=== PATIENT | female | born 1985 | race Caucasian/White ===

== ENCOUNTER 2016-03-21 12:37 | Emergency (ER) | payer MEDICAID, OTHER ==
[~2016-03-21] VITALS: Ht 154.9 cm; Wt 59.0 kg
[~2016-03-21 12:37] MED LIST: DOCU100S PO; FLON0.053; HYDR-3533 PO; PROM25TA5 PO; Z.0.BCPILL PO; [UNRECOGNIZED DRUG - OTHER] PO
[2016-03-21 12:41] VITALS: BP 120/72; PULSE 78; RESP 15; TEMP 98.4; O2SAT 98
--- NOTE | 2016-03-21 15:17 | PD ---
HPI Chief Complaint: Chest Pain Time Seen by Provider: 14:47 Travel History International Travel<30 days: No Contact w/Intl Traveler<30days: No Traveled to known affect area: No History of Present Illness HPI The patient was seen and examined in the presence of the nurse. This patient complains of primarily sore throat. She had attempted orally of 101 this morning. She also complains of some left sided pleuritic chest pain. She recently got over a cough. She is not short of breath. She can reproduce her chest pain with deep breath and torso movement. No alleviating factors. Symptoms severity is moderate. Duration 3 days. PFSH Past Medical History Asthma: Yes ( CHILD) Diminished Hearing: No Gastrointestinal Disorders: Yes ( A CHILD HAD A PEPTIC ULCER) Immunizations Current: Yes ?: Not LMP: 03/12/16 Past Surgical History Section: Yes Social History Alcohol Use: No Tobacco Use: No Substance Use: No Allergies-Medications (Allergen,Severity, Reaction): Coded Allergies: Peanut (Verified Allergy, Intermediate, hives with ingestion, minor throat swelling, 03/21/16) Reported Meds & Prescriptions Reported Meds & Active Scripts Active No Active Prescriptions or Reported Medications Review of Systems General / Constitutional: Positive: Fever Eyes: No: Visual changes HENT: Positive: Sore Throat, No: Headaches Cardiovascular: Positive: Chest Pain or Discomfort Respiratory: Positive: Cough, No: Shortness of Breath Gastrointestinal: No: Abdominal Pain Genitourinary: No: Dysuria Musculoskeletal: No: Pain Skin: No Rash Neurologic: No: Weakness Psychiatric: No: Depression Endocrine: No: Polydipsia Hematologic/Lymphatic: No: Easy Bruising Physical Exam Narrative GENERAL: Well-nourished, well-developed patient in no apparent distress. SKIN: Warm and dry. HEAD: Atraumatic. Normocephalic. EYES: Pupils equal and round. No scleral icterus. No injection or drainage. ENT: No nasal bleeding or discharge. Mucous membranes pink and moist. Patient has posterior pharynx erythema and a lot of white exudate on her right tonsil. Uvula is midline NECK: Trachea midline. No JVD. No meningeal signs CARDIOVASCULAR: Regular rate and rhythm. No murmur appreciated. RESPIRATORY: No accessory muscle use. Clear to auscultation. Breath sounds equal bilaterally. GASTROINTESTINAL: Abdomen soft, non-tender, nondistended. Hepatic and splenic margins not palpable. MUSCULOSKELETAL: No obvious deformities. No clubbing. No cyanosis. No edema. No chest wall tenderness NEUROLOGICAL: Awake and alert. No obvious cranial nerve deficits. Motor grossly within normal limits. Normal speech. PSYCHIATRIC: Appropriate mood and affect; insight and judgment normal. Data Data Last Documented VS Vital Signs Date Time Temp Pulse Resp B/P Pulse Ox O2 Delivery O2 Flow Rate FiO2 03/21/16 14:41 Room Air 03/21/16 12:41 98.4 78 15 120/72 98 Orders Electrocardiogram (03/21/16 12:56) Chest, Single Ap (03/21/16 ) [facility] Medical Decision Making Medical Screen Exam Complete: Yes Emergency Medical Condition: Yes Medical Record Reviewed: Yes Differential Diagnosis Tonsillitis, pleurisy, pneumonia, bronchitis Narrative Course I have reviewed the patient's electronic medical record. I reviewed her EKG which looks normal i Reviewed her chest x-ray which is normal Patient has an obvious tonsillitis on clinical exam. I don't feel culturing would filter changer. Prescribe penicillin for a week Her chest pain is clearly noncardiac and will not require inpatient evaluation Diagnosis Primary Impression: Tonsillitis with exudate Additional Impression: Non-cardiac chest pain Additional Instructions: The patient was advised to follow up with their physician and return if they worsen. Med/Other Pt SpecificInfo: Prescription(s) given Scripts Penicillin V Potassium 500 Mg [id number] Mg PO Q6H #28 TAB Ref 0 Prov:Jim Miranda MD 03/21/16 Disposition: 01 DISCHARGE HOME Condition: Stable Jim Miranda MD Mar 21, 2016 15:17
--- NOTE | 2016-03-21 15:54 | RADRPT ---
EXAM DATE/TIME: 03/21/2016 15:26 [facility] COMPARISON: No previous studies available for comparison. INDICATIONS : Chest pains. MEDICAL HISTORY : None. SURGICAL HISTORY : None. ENCOUNTER: Initial ACUITY: 1 day PAIN SCORE: 7/10 LOCATION: Bilateral chest FINDINGS: A single view of the chest demonstrates the lungs to be symmetrically aerated without evidence of mas s, infiltrate or effusion. The cardiomediastinal contours are unremarkable. Osseous structures are intact with a mild dextroscoliosis of the thoracolumbar spine. CONCLUSION: No acute cardiopulmonary process Kenny Noriega MD on March 21, 2016 at 15:52 Board Certified Radiologist. This report was verified electronically.
[2016-03-21] MEDS ORDERED: PENI500T PO (16:04)
[2016-03-21 16:07] VITALS: BP 118/65; PULSE 72; RESP 18; O2SAT 98
[2016-03-21 16:30] VITALS: BP 107/70
--- NOTE | 2016-03-22 22:58 | EKG ---
Date Performed: 03/21/2016 Time Performed: 13:23:41 PTAGE: 31 years EKG: Sinus rhythm BORDERLINE RIGHT AXIS DEVIATION BORDERLINE ECG NO PREVIOUS TRACING DOCTOR: Adriano Adams Interpretating Date/Time 03/22/2016 22:50:30
== END 2016-03-21 16:46 | disposition home or self-care (01) ==
LOC: NEPA 12:37
DX: J03.90 Acute tonsillitis, unspecified (principal); R07.1 Chest pain on breathing
CPT/HCPCS: 71010; 93005

== ENCOUNTER 2016-08-03 16:35 | Observation (INO) | payer MEDICAID ==
[2016-08-03] VITALS (7 sets, daily range): BP systolic 74–121; BP diastolic 37–72; PULSE 62–80; RESP 12–24; TEMP 97.9; O2SAT 98–100
[~2016-08-03] VITALS: Ht 154.9 cm; Wt 54.0 kg
[~2016-08-03 16:35] MED LIST changes: -DOCU100S PO; -FLON0.053; -HYDR-3533 PO; +PENI500T PO; -PROM25TA5 PO; -Z.0.BCPILL PO; -[UNRECOGNIZED DRUG - OTHER] PO
--- NOTE | 2016-08-03 16:48 | PD ---
Physical Exam Date Seen by Provider: Aug 03, 2016 Time Seen by Provider: 16:46 Data Data Last Documented VS Vital Signs Date Time Temp Pulse Resp B/P Pulse Ox O2 Delivery O2 Flow Rate FiO2 08/03/16 16:38 76 24 121/63 100 Room Air MDM Supervised Visit with JAZMINE: No Narrative Course 31 YO F with complaint of ~24 hour history of vaginal bleeding, abdominal pain. Denies risk of . History of 2 months ago. Vitals reviewed. Awaiting bed placement. Nani Antonio Aug 03, 2016 16:48
--- NOTE | 2016-08-03 16:53 | PD ---
HPI Chief Complaint: Residence Manager Problem/Complaint Time Seen by Provider: 16:53 Travel History International Travel<30 days: No Contact w/Intl Traveler<30days: No Traveled to known affect area: No History of Present Illness HPI 31 year old female presents to the ED for evaluation of vaginal bleeding and lower abdominal cramping. Pt states two months ago she had an via oral medication in [place] and had heavy bleeding and cramping following this for 1- 2 days. She had a follow up ultrasound two weeks following and was informed "everything passed" but there were " a few little clots that were still needing to pass." Pt reports post bleeding stopped and on July 22, pt had her first menstrual cycle since the . It was "normal" for her. Pt states it ended around July 27. Yesterday, the pt reports light bleeding and cramping. She states that then turned prone and she felt like it was resolving. She states today she was playing with her daughters when she began to experience heavy vaginal bleeding, passing large clots, and significant abdominal cramping. Denies any fever or chills. No nausea or vomiting. No vaginal discharge other than the bleeding. No trauma. No other symptoms to report. Patient does not have a local CARDIOTHORACIC SURGEON. [facility] Past Medical History Asthma: Yes ( CHILD) Diminished Hearing: No Gastrointestinal Disorders: Yes ( A CHILD HAD A PEPTIC ULCER) Immunizations Current: Yes ?: Not Past Surgical History Section: Yes Social History Alcohol Use: No Tobacco Use: No Substance Use: No Allergies-Medications (Allergen,Severity, Reaction): Coded Allergies: Peanut (Verified Allergy, Intermediate, hives with ingestion, minor throat swelling, 08/03/16) Reported Meds & Prescriptions Reported Meds & Active Scripts Active No Active Prescriptions or Reported Medications Review of Systems Except as stated in HPI: all other systems reviewed are Neg Physical Exam Narrative GENERAL: Well-nourished female patient, ambulatory and in no acute distress SKIN: Focused skin assessment warm/dry. HEAD: Atraumatic. Normocephalic. EYES: Pupils equal and round. No scleral icterus. No injection or drainage. ENT: No nasal bleeding or discharge. Mucous membranes pink and moist. NECK: Trachea midline. No JVD. CARDIOVASCULAR: Regular rate and rhythm. No murmur appreciated. RESPIRATORY: No accessory muscle use. Clear to auscultation. Breath sounds equal bilaterally. GASTROINTESTINAL: Abdomen soft, nondistended. Suprapubic tenderness to palpation. No guarding. Hepatic and splenic margins not palpable. GENITOURINARY: Normal external genitalia without lesions or erythema. Exam is significantly limited due to heavy lola red vaginal bleeding with large clots being passed. MUSCULOSKELETAL: No obvious deformities. No clubbing. No cyanosis. No edema. NEUROLOGICAL: Awake and alert. No obvious cranial nerve deficits. Motor grossly within normal limits. Normal speech. PSYCHIATRIC: Appropriate mood and affect; insight and judgment normal. Data Data Last Documented VS Vital Signs Date Time Temp Pulse Resp B/P Pulse Ox O2 Delivery O2 Flow Rate FiO2 08/03/16 21:15 80 21 96/72 100 Nasal Cannula 2 Orders Beta Hcg (Quant/Titer) (08/03/16 17:05) Complete Blood Count With Diff (08/03/16 17:05) Basic Metabolic Panel (Bmp) (08/03/16 17:05) Gc And Chlamydia Pcr (08/03/16 17:05) Type And Screen (08/03/16 17:05) Urinalysis - C+S If Indicated (08/03/16 17:05) Iv Access Insert/Monitor (08/03/16 17:05) Ed Urine Pregnancytest Poc (08/03/16 17:05) Sodium Chlor 0.9% 1000 Ml Inj (Ns 1000 M (08/03/16 17:15) Us Pelvis Comp W Transvaginal (08/03/16 ) Ketorolac Inj (Toradol Inj) (08/03/16 17:30) Hgb & Hct (08/03/16 19:19) Morphine Inj (Morphine Inj) (08/03/16 20:15) Sodium Chlor 0.9% 1000 Ml Inj (Ns 1000 M (08/03/16 20:30) Methylergonovine Inj (Methergine Inj) (08/03/16 20:30) Red Blood Cells (Rbc) (08/03/16 20:31) Blood Product Administration .UPON TRANSFUSION (08/03/16 20:31) Sodium Chlor 0.9% 250 Ml Inj (Ns 250 Ml (08/03/16 20:45) Misoprostol (Cytotec) (08/03/16 20:45) Methylergonovine Inj (Methergine Inj) (08/03/16 20:50) Admit Order (Ed Use Only) (08/03/16 21:29) Labs Laboratory Tests Test 08/03/16 08/03/16 08/03/16 08/03/16 17:10 20:16 20:34 21:10 White Blood Count 8.4 TH/MM3 Red Blood Count 4.65 MIL/MM3 Hemoglobin 13.3 GM/DL 11.7 GM/DL Hematocrit 40.2 % 34.6 % Mean Corpuscular Volume 86.4 FL Mean Corpuscular Hemoglobin 28.6 PG Mean Corpuscular Hemoglobin 33.0 % Concent Red Cell Distribution Width 13.2 % Platelet Count 241 TH/MM3 Mean Platelet Volume 10.1 FL Neutrophils (%) (Auto) 65.5 % Lymphocytes (%) (Auto) 28.6 % Monocytes (%) (Auto) 3.8 % Eosinophils (%) (Auto) 1.1 % Basophils (%) (Auto) 1.0 % Neutrophils # (Auto) 5.5 TH/MM3 Lymphocytes # (Auto) 2.4 TH/MM3 Monocytes # (Auto) 0.3 TH/MM3 Eosinophils # (Auto) 0.1 TH/MM3 Basophils # (Auto) 0.1 TH/MM3 CBC Comment DIFF FINAL Differential Comment Urine Color YELLOW Urine Turbidity SLIGHT Urine pH 7.5 Urine Specific [place] 1.022 Urine Protein TRACE mg/dL Urine Glucose (UA) NEG mg/dL Urine Ketones NEG mg/dL Urine Occult Blood MOD Urine Nitrite NEG Urine Bilirubin NEG Urine Urobilinogen LESS THAN 2.0 MG/DL Urine Leukocyte Esterase NEG Urine RBC /hpf Urine WBC 5 /hpf Urine Squamous Epithelial 1 /hpf Cells Urine Mucus FEW /lpf Microscopic Urinalysis Comment CULT NOT INDICATED Sodium Level 139 MEQ/L Potassium Level 4.0 MEQ/L Chloride Level 104 MEQ/L Carbon Dioxide Level 25.8 MEQ/L Anion Gap 9 MEQ/L Blood Urea Nitrogen 14 MG/DL Creatinine 0.83 MG/DL Estimat Glomerular Filtration 81 ML/MIN Rate Random Glucose 94 MG/DL Calcium Level 9.0 MG/DL Human Chorionic Gonadotropin, 24 MIU/ML Quant Blood Type O POSITIVE O POSITIVE Antibody Screen NEGATIVE Blood Bank Comment Crossmatch Leukocyte-Reduced Red Blood Cells MDM Medical Decision Making Medical Screen Exam Complete: Yes Emergency Medical Condition: Yes Medical Record Reviewed: Yes Differential Diagnosis Postabortion hemorrhage versus menorrhagia versus vaginal bleeding versus miscarriage versus menses Narrative Course 31-year-old female presents to emergency department for evaluation of vaginal bleeding. Patient initially appears well. Vital signs are stable. Hemoglobin is 13.3 BMP is without acute concern. Beta hCG is 24. Urinalysis is with moderate local blood and innumerable RBC. Culture is not indicated patient does have a significant amount of vaginal bleeding. Ultrasound is ordered for further evaluation of this. Laboratory Tests Test 08/03/16 08/03/16 08/03/16 08/03/16 17:10 20:16 20:34 21:10 White Blood Count 8.4 TH/MM3 Red Blood Count 4.65 MIL/MM3 Mean Corpuscular Volume 86.4 FL Mean Corpuscular Hemoglobin 28.6 PG Mean Corpuscular Hemoglobin 33.0 % Concent Red Cell Distribution Width 13.2 % Platelet Count 241 TH/MM3 Mean Platelet Volume 10.1 FL Neutrophils (%) (Auto) 65.5 % Lymphocytes (%) (Auto) 28.6 % Monocytes (%) (Auto) 3.8 % Eosinophils (%) (Auto) 1.1 % Basophils (%) (Auto) 1.0 % Neutrophils # (Auto) 5.5 TH/MM3 Lymphocytes # (Auto) 2.4 TH/MM3 Monocytes # (Auto) 0.3 TH/MM3 Eosinophils # (Auto) 0.1 TH/MM3 Basophils # (Auto) 0.1 TH/MM3 CBC Comment DIFF FINAL Differential Comment Urine Color YELLOW Urine Turbidity SLIGHT Urine pH 7.5 Urine Specific [place] 1.022 Urine Protein TRACE mg/dL Urine Glucose (UA) NEG mg/dL Urine Ketones NEG mg/dL Urine Occult Blood MOD Urine Nitrite NEG Urine Bilirubin NEG Urine Urobilinogen LESS THAN 2.0 MG/DL Urine Leukocyte Esterase NEG Urine RBC /hpf Urine WBC 5 /hpf Urine Squamous Epithelial 1 /hpf Cells Urine Mucus FEW /lpf Microscopic Urinalysis Comment CULT NOT INDICATED Sodium Level 139 MEQ/L Potassium Level 4.0 MEQ/L Chloride Level 104 MEQ/L Carbon Dioxide Level 25.8 MEQ/L Anion Gap 9 MEQ/L Blood Urea Nitrogen 14 MG/DL Creatinine 0.83 MG/DL Estimat Glomerular Filtration 81 ML/MIN Rate Random Glucose 94 MG/DL Calcium Level 9.0 MG/DL Human Chorionic Gonadotropin, 24 MIU/ML Quant Antibody Screen NEGATIVE Hemoglobin 11.7 GM/DL Hematocrit 34.6 % Crossmatch Leukocyte-Reduced Red Blood Cells Blood Bank Comment Blood Type O POSITIVE 1914 repeat H&H is ordered due to patient's continued bleeding. Patient is still awaiting ultrasound to be completed. She is treated for pain. 2029 patient begins to feel lightheaded. She appears pallor. She continues to have heavy vaginal bleeding. She is now hypotensive. Normal saline boluses hung. 2 units of packed red blood cells are ordered. I have placed a call to the [facility]GE[facility] hospitalist. I spoke with Dr. Orona who recommends 0.2mg Methergine IM. She'll be down to evaluate the patient. 2049 Dr. Orantes is at bedside. Patient is being examined. Multiple clots have been removed from the vaginal vault. Please refer to Dr. Orona's documentation. 2129 ultrasound results a large hypervascular mass in the central uterus measuring 4.6 cm. It is uncertain whether this arises from the myometrium or the endometrium. There is complex partially cystic lesion in the left ovary measuring 2.4 cm with peripheral flow on color Doppler. Passage of a significant amount of clot from the vagina during transabdominal exam is noted. Dr. Orona is aware. Pt will be admitted observation to her service. Diagnosis Primary Impression: Vaginal bleeding, abnormal Additional Impression: History of elective Admitting Information Admitting Physician Requests: Observation (h) Scripts No Active Prescriptions or Reported Meds Condition: Stable BarNallely pizano GILDA Aug 03, 2016 16:53
[2016-08-03] MEDS ORDERED: SODIUM CHLOR 0.9% 1000 ML INJ 1,000 ML IV ONE ×2 (17:15→20:30)
[2016-08-03] MEDS ORDERED: KETOROLAC TROMETHAMINE 30 MG/ML (IVP) VIAL IV PUSH ONE (17:30)
[2016-08-03 17:36] LABS: AUTOMATED NEUTROPHIL # 5.5 TH/MM3 (1.8-7.7); BASOPHIL # 0.1 TH/MM3 (0-0.2); EOSINOPHIL # 0.1 TH/MM3 (0-0.4); EOSINOPHIL % 1.1 % (0.0-4.0); HEMATOCRIT 40.2 % (35.0-46.0); HEMO FLAGS DIFF FINAL; LYMPH % 28.6 % (9.0-44.0); LYMPHOCYTE # 2.4 TH/MM3 (1.0-4.8); MEAN CELL VOLUME 86.4 FL (80.0-100.0); MEAN CORPUSCULAR HEMOGLOBIN 28.6 PG (27.0-34.0); MONO % 3.8 % (0.0-8.0); NEUT % 65.5 % (16.0-70.0); PLATELET COUNT 241 TH/MM3 (150-450); RED BLOOD COUNT 4.65 MIL/MM3 (4.00-5.30); RED CELL DISTRIBUTION WIDTH 13.2 % (11.6-17.2); WHITE BLOOD COUNT 8.4 TH/MM3 (4.0-11.0)
[2016-08-03 17:46] LABS: BLOOD, URINE MOD (NEG); GLUCOSE,URINE NEG (NEG); KETONE, URINE NEG (NEG); MUCUS URINE FEW /lpf (OCC); NITRITE,URINE NEG (NEG); PH, URINE 7.5 (5.0-8.5); SQUAMOUS EPITHELIAL CELL URINE 1 /hpf (0-5); URINE COLOR YELLOW (YELLW/STRAW)
[2016-08-03 17:47] LABS: COMMENT (UR) CULT NOT INDICATED; CULTURE IF INDICATED CULT NOT INDICATED
[2016-08-03 18:14] LABS: BICARBONATE 25.8 MEQ/L (21.0-32.0)
[2016-08-03] MEDS ORDERED: MORPHINE SULFATE 4 MG/ML INJ IV PUSH ONE (20:15)
[2016-08-03] MEDS ORDERED: METHYLERGONOVINE MALEATE 0.2 MG/ML VIAL IM ONE (20:30)
[2016-08-03 20:39] LABS: HEMATOCRIT 34.6 % (35.0-46.0); REVIEW FLAG FINAL
[2016-08-03] MEDS ORDERED: METHYLERGONOVINE MALEATE 0.2 MG/ML VIAL IM STA ×2 (20:39→20:50)
[2016-08-03] MEDS ORDERED: MISOPROSTOL 200 MCG TAB RECTAL ONE (20:45)
[2016-08-03] MEDS ORDERED: SODIUM CHLOR 0.9% 250 ML INJ 250 ML IV ONE (20:45)
--- NOTE | 2016-08-03 21:38 | PD.CONS ---
HPI Chief Complaint Vaginal bleeding Date Seen: Aug 03, 2016 Travel History International Travel<30 Days: No Contact w/Intl Traveler<30Days: No Known Affected Area: No History of Present Illness HPI 31 yo who had a recent EAB at 7 weeks gestation in [place]. She was given an oral "tablet" that followed with vaginal bleeding and clots. She had a f/u US 2 weeks later that noted no IUP, just "some clots" per patient. Records not available. She had about 2-3 weeks of light vaginal bleeding and at 4-5 weeks post AB she had heavier bleeding that she thought might be a period. Yesterday she began to have significant vaginal bleeding with clot that seem to resolve after a few hours. She then started having significant cramping and vaginal bleeding today before presenting to the ER. On presentation to the ER she had heavy vaginal bleeding, but VSS, she was afebrile. Her Hgb was 11. An ultrasound was obtained, and is still pending. She was given IVF and 2 units of blood were crossed. She continued to pass several clots and became hypotensive which resolved with fluids. Estimated blood loss was about 1000ml. EMBROIDERER [facility] was called for consult. She was given an initial IM injection of Methergine. A clot was removed from the vaginal vault and the cervix was closed. A second dose of IM Methergine was given and on repeat speculum exam her bleeding had resolved. A cervical polyp was also observed at the cervical OS which is hemostatic. History Obstetric History Obstetric History x 1 x 1 EAB x 1 Past Surgical History Narrative Surgical 2016 Family History Family History: Negative Social History Alcohol Use: No Tobacco Use: No Substance Abuse: No Allergies-Medications (Allergen,Severity, Reaction): Coded Allergies: Peanut (Verified Allergy, Intermediate, hives with ingestion, minor throat swelling, 08/03/16) Home Meds Discontinued Scripts Penicillin V Potassium 500 Mg [id number] Mg PO Q6H #28 TAB Ref 0 Prov:Jim Miranda MD 03/21/16 Review of Systems General / Constitutional: No: Fever, Chills HENT: No: Headaches, Lightheadedness Cardiovascular: No: Chest Pain or Discomfort, Palpitations Respiratory: No: Cough, Short of Breath Gastrointestinal: Nausea, Abdominal Pain (cramping), No: Vomiting, Diarrhea Genitourinary: Pelvic Pain (pressure), Vaginal Bleeding, No: Urgency, Frequency, Dysuria, Discharge Musculoskeletal: No: Limited ROM, Weakness, Edema Skin: No Rash, No Itching, No Lesions Neurologic: No: Syncope, Focal Abnormalities Physical Exam Vital Signs Date Time Temp Pulse Resp B/P Pulse Ox O2 Delivery O2 Flow Rate FiO2 08/03/16 21:10 80 22 89/55 100 Nasal Cannula 2 08/03/16 21:00 69 22 87/52 100 Nasal Cannula 2 08/03/16 20:25 62 12 74/37 100 Nasal Cannula 2 08/03/16 20:19 72 12 106/59 98 Room Air 08/03/16 18:32 17 08/03/16 17:03 17 08/03/16 16:38 76 24 121/63 100 Room Air Narrative GENERAL: Well-nourished, well-developed patient. SKIN: Warm and dry. HEAD: Normocephalic and atraumatic. EYES: No scleral icterus. No injection or drainage. ENT: No nasal drainage noted. Mucous membranes pink. Airway patent. NECK: trachea midline. No JVD. CARDIOVASCULAR: Regular rate and rhythm without murmurs, gallops, or rubs. RESPIRATORY: Breath sounds equal bilaterally. No accessory muscle use. ABDOMEN/GI: Abdomen soft, non-tender, no rebound, no guarding GENITOURINARY: External Genitalia: intact and normal in appearance BUS glands: [-] SSE: Cervix: external polyp noted 1cm hemostatic Bimanual exam: clots in vaginal vault cleared, cervix was closed EXTREMITIES: No cyanosis or edema. BACK: Nontender without obvious deformity. No CVA tenderness. NEUROLOGICAL: Awake and alert. Motor and sensory grossly within normal limits. Normal speech. Data Data Vital Signs Reviewed: Yes Orders Beta Hcg (Quant/Titer) (08/03/16 17:05) Complete Blood Count With Diff (08/03/16 17:05) Basic Metabolic Panel (Bmp) (08/03/16 17:05) Gc And Chlamydia Pcr (08/03/16 17:05) Type And Screen (08/03/16 17:05) Urinalysis - C+S If Indicated (08/03/16 17:05) Iv Access Insert/Monitor (08/03/16 17:05) Ed Urine Pregnancytest Poc (08/03/16 17:05) Sodium Chlor 0.9% 1000 Ml Inj (Ns 1000 M (08/03/16 17:15) Us Pelvis Comp W Transvaginal (08/03/16 ) Ketorolac Inj (Toradol Inj) (08/03/16 17:30) Hgb & Hct (08/03/16 19:19) Morphine Inj (Morphine Inj) (08/03/16 20:15) Sodium Chlor 0.9% 1000 Ml Inj (Ns 1000 M (08/03/16 20:30) Methylergonovine Inj (Methergine Inj) (08/03/16 20:30) Red Blood Cells (Rbc) (08/03/16 20:31) Blood Product Administration .UPON TRANSFUSION (08/03/16 20:31) Sodium Chlor 0.9% 250 Ml Inj (Ns 250 Ml (08/03/16 20:45) Misoprostol (Cytotec) (08/03/16 20:45) Methylergonovine Inj (Methergine Inj) (08/03/16 20:50) Labs Laboratory Tests Test 08/03/16 08/03/16 08/03/16 17:10 20:16 20:34 White Blood Count 8.4 Red Blood Count 4.65 Hemoglobin 13.3 11.7 Hematocrit 40.2 34.6 Mean Corpuscular Volume 86.4 Mean Corpuscular Hemoglobin 28.6 Mean Corpuscular Hemoglobin 33.0 Concent Red Cell Distribution Width 13.2 Platelet Count 241 Mean Platelet Volume 10.1 Neutrophils (%) (Auto) 65.5 Lymphocytes (%) (Auto) 28.6 Monocytes (%) (Auto) 3.8 Eosinophils (%) (Auto) 1.1 Basophils (%) (Auto) 1.0 Neutrophils # (Auto) 5.5 Lymphocytes # (Auto) 2.4 Monocytes # (Auto) 0.3 Eosinophils # (Auto) 0.1 Basophils # (Auto) 0.1 CBC Comment DIFF FINAL Differential Comment Urine Color YELLOW Urine Turbidity SLIGHT Urine pH 7.5 Urine Specific [place] 1.022 Urine Protein TRACE Urine Glucose (UA) NEG Urine Ketones NEG Urine Occult Blood MOD Urine Nitrite NEG Urine Bilirubin NEG Urine Urobilinogen LESS THAN 2.0 Urine Leukocyte Esterase NEG Urine RBC Urine WBC 5 Urine Squamous Epithelial 1 Cells Urine Mucus FEW Microscopic Urinalysis Comment CULT NOT INDICATED Sodium Level 139 Potassium Level 4.0 Chloride Level 104 Carbon Dioxide Level 25.8 Anion Gap 9 Blood Urea Nitrogen 14 Creatinine 0.83 Estimat Glomerular Filtration 81 Rate Random Glucose 94 Calcium Level 9.0 Human Chorionic Gonadotropin, 24 Quant Blood Type O POSITIVE Antibody Screen NEGATIVE Blood Bank Comment Crossmatch Leukocyte-Reduced Red Blood Cells MDM Narrative Course / MDM Post AB hemorrhage Responded to IM Methergine, repeat dose given in ER with bleeding resolved/scant , Cytotec on hold as needed Will continue oral Methergine q 6 hours on Observation Hgb remains WNL, suspect about 1000ml EBL and suspect Hgb will likely be closer to 9, repeat CBC in 4 hours ordered continue IV hydration, mild hypotension now stable Awaiting ultrasound. If any POC suspected will contact Dr. Guzmán for D&C Patient agreed with plan of care. Scripts No Active Prescriptions or Reported Meds Niya Orona MD Aug 03, 2016 21:38
--- NOTE | 2016-08-03 21:41 | RADRPT ---
EXAM DATE/TIME: 08/03/2016 19:00 [facility] COMPARISON: No previous studies available for comparison. INDICATIONS : Pelvic pain and abnormal bleeding. MEDICAL HISTORY : . x 1. Asthma. Peptic ulcer. Anemia. Restless legs syndrome. SURGICAL HISTORY : section. ENCOUNTER: Initial ACUITY: 1 day PAIN SCORE: 5/10 LOCATION: Bilateral pelvis MEASUREMENTS: UTERUS: 8.4 x 6.8 x 5.0 cm ENDOMETRIAL STRIPE: >20 mm RIGHT OVARY: 3.7 x 2.3 x 1.4 cm LEFT OVARY: 3.8 x 3.0 x 2.2 cm FINDINGS: UTERUS: There is a prominent area of inhomogeneous hyper echogenicity within the central uterus which measure s 4.6 x 4.3 x 4.1 cm. On color Doppler, there is prominent flow throughout this region suggesting a uterine mass. The endometrium is not well-seen in this region and it is uncertain whether the mass a rises from or obscures the endometrium. RIGHT OVARY: Ovary contains no mass or significant cystic lesion. LEFT OVARY: There is a mixed cystic and solid lesion within the ovary which measures 2.4 x 2.0 x 1.7 cm. There i s flow about the margin of this lesion on color Doppler. MISCELLANEOUS: No free fluid. During the transabdominal portion of the exam, patient passed a large amount of blood from the vagina. This clot is seen on the transabdominal images in the vagina and measuring 4.8 x 5 .8 x 6.6 cm; this area is no longer seen after passage of the clot CONCLUSION: 1. There is a hypervascular mass in the central uterus measuring 4.6 cm. Is uncertain whether this a rises from myometrium or endometrium. 2. Complex partially cystic lesion in the left ovary measuring 2.4 cm with peripheral flow on color D oppler. 3. Passage of a significant amount of clot from the vagina during the transabdominal exam. Hiram Cat MD on August 03, 2016 at 21:09 Board Certified Radiologist. This report was verified electronically.
[2016-08-03] MEDS ORDERED: ACETAMINOPHEN 325 MG TAB PO PRN (21:45)
[2016-08-03] MEDS ORDERED: SIMETHICONE 80 MG CHEWABLE TAB PO PRN (21:45)
[2016-08-03] MEDS ORDERED: DOCUSATE SODIUM 50 MG/SENNA 8.6 MG TAB PO PRN (21:45)
[2016-08-03] MEDS ORDERED: oxyCODONE/ACETAMINOPHEN 5 MG/325 MG TAB PO PRN (21:45)
--- NOTE | 2016-08-03 21:53 | HHI.HP ---
History & Physical H&P HPI HPI Chief Complaint Vaginal bleeding Date Seen: Aug 03, 2016 Travel History International Travel<30 Days: No Contact w/Intl Traveler<30Days: No Known Affected Area: No History of Present Illness HPI 31 yo who had a recent EAB at 7 weeks gestation in [place]. She was given an oral "tablet" that followed with vaginal bleeding and clots. She had a f/u US 2 weeks later that noted no IUP, just "some clots" per patient. Records not available. She had about 2-3 weeks of light vaginal bleeding and at 4-5 weeks post AB she had heavier bleeding that she thought might be a period. Yesterday she began to have significant vaginal bleeding with clot that seem to resolve after a few hours. She then started having significant cramping and vaginal bleeding today before presenting to the ER. On presentation to the ER she had heavy vaginal bleeding, but VSS, she was afebrile. Her Hgb was 11. An ultrasound was obtained, and is still pending. She was given IVF and 2 units of blood were crossed. She continued to pass several clots and became hypotensive which resolved with fluids. Estimated blood loss was about 1000ml. DEFENSIVE LINE COACH was called for consult. She was given an initial IM injection of Methergine. A clot was removed from the vaginal vault and the cervix was closed. A second dose of IM Methergine was given and on repeat speculum exam her bleeding had resolved. A cervical polyp was also observed at the cervical OS which is hemostatic. History (Limited) History Obstetric History Obstetric History x 1 x 1 EAB x 1 Past Surgical History Narrative Surgical 2016 Family History Family History: Negative Social History Alcohol Use: No Tobacco Use: No Substance Abuse: No Allergies-Medications Allergies-Medications (Allergen,Severity, Reaction): Coded Allergies: Peanut (Verified Allergy, Intermediate, hives with ingestion, minor throat swelling, 08/03/16) Home Meds Discontinued Scripts Penicillin V Potassium 500 Mg [id number] Mg PO Q6H #28 TAB Ref 0 Prov:Jim Miranda MD 03/21/16 ROS Review of Systems General / Constitutional: No: Fever, Chills HENT: No: Headaches, Lightheadedness Cardiovascular: No: Chest Pain or Discomfort, Palpitations Respiratory: No: Cough, Short of Breath Gastrointestinal: Nausea, Abdominal Pain (cramping), No: Vomiting, Diarrhea Genitourinary: Pelvic Pain (pressure), Vaginal Bleeding, No: Urgency, Frequency, Dysuria, Discharge Musculoskeletal: No: Limited ROM, Weakness, Edema Skin: No Rash, No Itching, No Lesions Neurologic: No: Syncope, Focal Abnormalities Physical Exam Physical Exam Vital Signs Date Time Temp Pulse Resp B/P Pulse Ox O2 Delivery O2 Flow Rate FiO2 08/03/16 21:10 80 22 89/55 100 Nasal Cannula 2 08/03/16 21:00 69 22 87/52 100 Nasal Cannula 2 08/03/16 20:25 62 12 74/37 100 Nasal Cannula 2 08/03/16 20:19 72 12 106/59 98 Room Air 08/03/16 18:32 17 08/03/16 17:03 17 08/03/16 16:38 76 24 121/63 100 Room Air Narrative GENERAL: Well-nourished, well-developed patient. SKIN: Warm and dry. HEAD: Normocephalic and atraumatic. EYES: No scleral icterus. No injection or drainage. ENT: No nasal drainage noted. Mucous membranes pink. Airway patent. NECK: trachea midline. No JVD. CARDIOVASCULAR: Regular rate and rhythm without murmurs, gallops, or rubs. RESPIRATORY: Breath sounds equal bilaterally. No accessory muscle use. ABDOMEN/GI: Abdomen soft, non-tender, no rebound, no guarding GENITOURINARY: External Genitalia: intact and normal in appearance BUS glands: [-] SSE: Cervix: external polyp noted 1cm hemostatic Bimanual exam: clots in vaginal vault cleared, cervix was closed EXTREMITIES: No cyanosis or edema. BACK: Nontender without obvious deformity. No CVA tenderness. NEUROLOGICAL: Awake and alert. Motor and sensory grossly within normal limits. Normal speech. Data Data Data Vital Signs Reviewed: Yes Orders Beta Hcg (Quant/Titer) (08/03/16 17:05) Complete Blood Count With Diff (08/03/16 17:05) Basic Metabolic Panel (Bmp) (08/03/16 17:05) Gc And Chlamydia Pcr (08/03/16 17:05) Type And Screen (08/03/16 17:05) Urinalysis - C+S If Indicated (08/03/16 17:05) Iv Access Insert/Monitor (08/03/16 17:05) Ed Urine Pregnancytest Poc (08/03/16 17:05) Sodium Chlor 0.9% 1000 Ml Inj (Ns 1000 M (08/03/16 17:15) Us Pelvis Comp W Transvaginal (08/03/16 ) Ketorolac Inj (Toradol Inj) (08/03/16 17:30) Hgb & Hct (08/03/16 19:19) Morphine Inj (Morphine Inj) (08/03/16 20:15) Sodium Chlor 0.9% 1000 Ml Inj (Ns 1000 M (08/03/16 20:30) Methylergonovine Inj (Methergine Inj) (08/03/16 20:30) Red Blood Cells (Rbc) (08/03/16 20:31) Blood Product Administration .UPON TRANSFUSION (08/03/16 20:31) Sodium Chlor 0.9% 250 Ml Inj (Ns 250 Ml (08/03/16 20:45) Misoprostol (Cytotec) (08/03/16 20:45) Methylergonovine Inj (Methergine Inj) (08/03/16 20:50) Labs Laboratory Tests Test 08/03/16 08/03/16 08/03/16 17:10 20:16 20:34 White Blood Count 8.4 Red Blood Count 4.65 Hemoglobin 13.3 11.7 Hematocrit 40.2 34.6 Mean Corpuscular Volume 86.4 Mean Corpuscular Hemoglobin 28.6 Mean Corpuscular Hemoglobin 33.0 Concent Red Cell Distribution Width 13.2 Platelet Count 241 Mean Platelet Volume 10.1 Neutrophils (%) (Auto) 65.5 Lymphocytes (%) (Auto) 28.6 Monocytes (%) (Auto) 3.8 Eosinophils (%) (Auto) 1.1 Basophils (%) (Auto) 1.0 Neutrophils # (Auto) 5.5 Lymphocytes # (Auto) 2.4 Monocytes # (Auto) 0.3 Eosinophils # (Auto) 0.1 Basophils # (Auto) 0.1 CBC Comment DIFF FINAL Differential Comment Urine Color YELLOW Urine Turbidity SLIGHT Urine pH 7.5 Urine Specific Rock 1.022 Urine Protein TRACE Urine Glucose (UA) NEG Urine Ketones NEG Urine Occult Blood MOD Urine Nitrite NEG Urine Bilirubin NEG Urine Urobilinogen LESS THAN 2.0 Urine Leukocyte Esterase NEG Urine RBC Urine WBC 5 Urine Squamous Epithelial 1 Cells Urine Mucus FEW Microscopic Urinalysis Comment CULT NOT INDICATED Sodium Level 139 Potassium Level 4.0 Chloride Level 104 Carbon Dioxide Level 25.8 Anion Gap 9 Blood Urea Nitrogen 14 Creatinine 0.83 Estimat Glomerular Filtration 81 Rate Random Glucose 94 Calcium Level 9.0 Human Chorionic Gonadotropin, 24 Quant Blood Type O POSITIVE Antibody Screen NEGATIVE Blood Bank Comment Crossmatch Leukocyte-Reduced Red Blood Cells MDM MDM Narrative Course / MDM Post AB hemorrhage Responded to IM Methergine, repeat dose given in ER with bleeding resolved/scant , Cytotec on hold as needed Will continue oral Methergine q 6 hours on Observation Hgb remains WNL, suspect about 1000ml EBL and suspect Hgb will likely be closer to 9, repeat CBC in 4 hours ordered continue IV hydration, mild hypotension now stable Awaiting ultrasound. If any POC suspected will contact Dr. Guzmán for D&C Patient agreed with plan of care. Scripts No Active Prescriptions or Reported Meds Niya Orona MD Aug 03, 2016 21:38 Niya Orona MD Aug 03, 2016 21:53
[2016-08-03] MEDS: ONDANSETRON HCL 4 MG/2 ML VIAL IV PUSH PRN (22:03)
[2016-08-03] MEDS: LACTATED RINGER'S 1000 ML INJ 1,000 ML IV SCH (22:04)
[2016-08-04 00:12] LABS: AUTOMATED NEUTROPHIL # 8.4 TH/MM3 (1.8-7.7); BASOPHIL # 0.1 TH/MM3 (0-0.2); BASOPHIL % 0.6 % (0.0-2.0); EOSINOPHIL % 0.2 % (0.0-4.0); HEMATOCRIT 30.1 % (35.0-46.0); HEMO FLAGS DIFF FINAL; LYMPH % 15.1 % (9.0-44.0); LYMPHOCYTE # 1.6 TH/MM3 (1.0-4.8); MEAN CORPUSCULAR HEMOGLOBIN 29.4 PG (27.0-34.0); MEAN CORPUSCULAR HGB CONC 34.1 % (32.0-36.0); NEUT % 82.1 % (16.0-70.0); PLATELET COUNT 176 TH/MM3 (150-450); RED CELL DISTRIBUTION WIDTH 13.2 % (11.6-17.2); WHITE BLOOD COUNT 10.3 TH/MM3 (4.0-11.0)
[2016-08-04] MEDS: METHYLERGONOVINE MALEATE 0.2 MG TAB PO SCH ×4 (01:04→18:29)
[2016-08-04] MEDS: oxyCODONE/ACETAMINOPHEN 5 MG/325 MG TAB PO PRN ×3 (01:08→20:10)
[2016-08-04 04:04] VITALS: BP 99/53; PULSE 72; RESP 16; TEMP 98.7; O2SAT 100
[2016-08-04] MEDS: LACTATED RINGER'S 1000 ML INJ 1,000 ML IV SCH (08:16)
[2016-08-04 08:18] VITALS: BP 100/58; PULSE 80; RESP 16; TEMP 98.3; O2SAT 99
--- NOTE | 2016-08-04 09:57 | HHI.FPPN ---
Subjective Remarks No acute events overnight. Blood pressure remains low but patient is clinically stable. This morning patient reports that she is feeling much better. Vaginal bleeding has stopped and cramping has improved. Patient has no other concerns. (Emily Rodríguez MD R2) Objective Vitals Vital Signs Date Time Temp Pulse Resp B/P Pulse Ox O2 Delivery O2 Flow Rate FiO2 08/04/16 08:18 98.3 80 16 100/58 99 08/04/16 04:04 98.7 72 16 99/53 100 08/03/16 23:00 97.9 72 16 104/49 100 08/03/16 21:15 80 21 96/72 100 Nasal Cannula 2 08/03/16 21:10 80 22 89/55 100 Nasal Cannula 2 08/03/16 21:00 69 22 87/52 100 Nasal Cannula 2 08/03/16 20:25 62 12 74/37 100 Nasal Cannula 2 08/03/16 20:19 72 12 106/59 98 Room Air 08/03/16 18:32 17 08/03/16 17:03 17 08/03/16 16:38 76 24 121/63 100 Room Air (Emily Rodríguez MD R2) Result Diagram: 08/04/16 0002 08/03/16 1710 Objective Remarks GEN: Well-developed, well-nourished patient. No acute distress. Resting comfortably in bed CV: Regular rate and rhythm without obvious murmurs LUNGS: Clear to auscultation bilaterally. Normal respiratory effort. GI: Soft, nontender, nondistended. EXT: No edema. No calf tenderness. NEURO/PSYCH: Awake, alert. Appropriate insight and judgment. Normal speech ( Emily Rodríguez MD R2) A/P Assessment and Plan 31 yo who had a recent EAB at 7 weeks gestation in [place]. Was given an unknown medication and had a follow-up ultrasound 2 weeks later that was reported as mostly normal per patient. Admitted for significant vaginal bleeding after elective . 1. Post AB hemorrhage * Responded to IM Methergine x2. Continue oral Methergine q6hr * US significant for 4.6cm hypervascular mass in the uterus. However BHCG was relatively low at 24 * Contacted Dr. Bee for evaluation for possible of D&C * H&H stable (13.3-11.7-10.3), repeat CBC and BMP today 2. Hypotension * Suspect patient's baseline blood pressure is low and she is currently asymptomatic. * Continue LR 2 bags. Further IV hydration not indicated at this time sdw Dr. Oorna (Emily Rodríguez MD R2) Attending Attestation Patient admitted overnight for observation Bleeding after EAB, hemorrhage resolved with Methergine Reviewed US report and suspect retained POC consult Dr. Bee for D&C (Niya Orona MD) Emily Rodríguez MD R2 Aug 04, 2016 09:57 Niya Orona MD Aug 09, 2016 09:37
[2016-08-04] MEDS ORDERED: CHLORHEXIDINE GLUCONATE 2 % 1 PACK (2 CLOTHS) TOPICAL PRN (11:00)
[2016-08-04] MEDS ORDERED: SODIUM CHLORID 0.9% 500 ML IV PRN (11:00)
[2016-08-04] MEDS ORDERED: INSULIN HUMAN REGULAR 1,000 UNITS/10 ML VIAL SQ PRN (11:00)
[2016-08-04] MEDS ORDERED: LACTATED RINGER'S 1000 ML IV PRN (11:00)
[2016-08-04] MEDS ORDERED: POVIDONE IODINE 5% (ANTISEPSIS KIT) 4 APPLICATIONS EACH NARE PRN (11:00)
[2016-08-04] MEDS ORDERED: METOPROLOL TARTRATE 25 MG TAB PO PRN (11:00)
--- NOTE | 2016-08-04 11:07 | MH ---
cc: PATRICIA LISA DATE OF ADMISSION: 08/03/2016 ADMITTING DIAGNOSIS: Incomplete , possible uterine polyp or fibroid. HISTORY OF PRESENT ILLNESS The patient is a 31-year-old single white female, para 2-0-1-2, who had elective at about 7-weeks gestation in [place] about 2 months ago. She was given oral tablet x2 and that was followed by vaginal bleeding and clots. She had a follow-up ultrasound after that which showed no IUP just some clots, per patient. She had 3 weeks of light bleeding after the procedure and then had no bleeding for about a month. She began bleeding very heavy yesterday at 03:00 p.m., that was so heavy she was quite frightened and came to the ED for evaluation. Her hemoglobin was 11. Ultrasound showed a 4 cm vascular mass inside the uterus and a cyst on the right ovary that was small and complex. Her Beta-titer was 24. Rh type is positive and her hemoglobin had started at 13.3 at 05:10 p.m. and dropped to 11.7 at 08:16 p.m. After two shots of Methergine she has stabilized. PAST MEDICAL HISTORY Previous surgery: First delivery vaginal, second by . She had third molars age 22. MEDICATION None. ALLERGIES PEANUTS. TRANSFUSIONS None. SOCIAL HISTORY She is single, unemployed. Alcohol: Occasional. Tobacco: None. Drugs: None. FAMILY HISTORY Noncontributory. PHYSICAL EXAMINATION GENERAL: A well-nourished, well-developed white female, in no distress. HEENT: Exam is normal. CHEST: Her chest is clear. HEART: Her heart is regular rate. ABDOMEN: The abdomen is soft. EXTREMITIES: Normal. PELVIC: Pelvic exam will be repeated in the OR. ASSESSMENT I recommended D&C with suction in view of the uterine mass. I have explained the possibilities and she would like to proceed. She will maintain n.p.o. We will await the availability of the OR to proceed. MD SUZANNA Hamilton/STEPHEN /10:42 AM /10:51 AM
[2016-08-04 11:26] LABS: HEMATOCRIT 27.7 % (35.0-46.0); MEAN CELL VOLUME 86.2 FL (80.0-100.0); MEAN CORPUSCULAR HEMOGLOBIN 28.9 PG (27.0-34.0); MEAN CORPUSCULAR HGB CONC 33.6 % (32.0-36.0); PLATELET COUNT 156 TH/MM3 (150-450); RED BLOOD COUNT 3.21 MIL/MM3 (4.00-5.30); RED CELL DISTRIBUTION WIDTH 12.9 % (11.6-17.2); REVIEW FLAG FINAL; WHITE BLOOD COUNT 7.7 TH/MM3 (4.0-11.0)
[2016-08-04] MEDS ORDERED: PROPOFOL 200 MG/20 ML AMP IV ONE (12:00)
[2016-08-04] MEDS ORDERED: KETOROLAC TROMETHAMINE 60 MG/2 ML (IM) VIAL IM ONE (12:00)
[2016-08-04] MEDS ORDERED: ONDANSETRON HCL 4 MG/2 ML VIAL IV PUSH ONE (12:00)
[2016-08-04] MEDS: ONDANSETRON HCL 4 MG/2 ML VIAL IV PUSH PRN (12:06)
[2016-08-04 12:12] VITALS: BP 87/52; PULSE 70; RESP 16; TEMP 97.8; O2SAT 100
[2016-08-04] MEDS ORDERED: OXYTOCIN 10 UNIT/ML AMP ONE (14:18)
[2016-08-04] MEDS ORDERED: ceFAZolin INJ 1,000 MG VIAL IV ONE (14:35)
[2016-08-04] MEDS: D5-1/2 NS + KCL 20 MEQ INJ 1,000 ML IV SCH ×2 (14:51→22:51)
[2016-08-04] MEDS ORDERED: ONDANSETRON HCL 4 MG/2 ML VIAL IV PRN (15:00)
[2016-08-04] MEDS ORDERED: PROMETHAZINE HCL 25 MG TAB PO PRN (15:00)
[2016-08-04] MEDS: KETOROLAC TROMETHAMINE 30 MG/ML (IVP) VIAL IVP SCH ×2 (15:00→20:10)
[2016-08-04] MEDS: DOCUSATE SODIUM 100 MG CAP PO SCH (15:00)
[2016-08-04] MEDS ORDERED: ZOLPIDEM TARTRATE 5 MG TAB PO PRN (15:00)
[2016-08-04] MEDS ORDERED: ONDANSETRON ODT 4 MG TAB PO PRN (15:00)
[2016-08-04] MEDS ORDERED: SODIUM CHLORIDE 0.9% FLUSH 5 ML FLUSH FLUSH PRN (15:00)
[2016-08-04] MEDS ORDERED: MIDAZOLAM HCL 2 MG/2 ML VIAL ONE (15:03)
[2016-08-04] MEDS ORDERED: fentaNYL CITRATE 250 MCG/5 ML AMP ONE (15:04)
[2016-08-04 15:26] LABS: CHLAMYDIA PCR NOT DETECTED (NOT DETECT); NEISSERIA PCR NOT DETECTED (NOT DETECT)
[2016-08-04 15:57] VITALS: BP 97/55; PULSE 80; RESP 16; TEMP 97.8; O2SAT 100
[2016-08-04 18:18] LABS: HEMATOCRIT 27.2 % (35.0-46.0); REVIEW FLAG FINAL
[2016-08-04 20:19] VITALS: BP 88/47; PULSE 78; RESP 17; TEMP 98.3; O2SAT 100
[2016-08-04] MEDS ORDERED: SODIUM CHLORIDE 0.9% FLUSH 5 ML FLUSH FLUSH SCH (21:00)
[2016-08-04] MEDS: METOCLOPRAMIDE HCL 10 MG/2 ML VIAL IV PUSH SCH (21:57)
--- NOTE | 2016-08-04 22:47 | MP ---
cc: PATRICIA LISA DATE OF SURGERY 08/04/2016 PREOPERATIVE DIAGNOSIS Incomplete with hemorrhage. POSTOPERATIVE DIAGNOSIS Incomplete with hemorrhage. PROCEDURE Suction and sharp D&C. ANESTHESIA General face mask. ESTIMATED BLOOD LOSS About 100 cc. FLUIDS 0.5 liter of crystalloid. OBJECTIVE FINDINGS Following induction of adequate general face mask anesthesia the patient was prepped and draped supine on the operating table in dorsolithotomy position in the usual sterile fashion with the bladder being drained via in-and-out catheterization. Examination under anesthesia revealed a normal size, shape anterior uterus. No adnexal masses. Heavy weighted speculum was placed in the posterior fornix of the vagina. The anterior lip of the cervix grasped with single-tooth tenaculum. Cervix uterus sounded to 8 cm. There is a 1 cm polyp at the introitus. The cervix was then dilated to a #20 Hanks dilator. A #8 suction curette passed to remove the products of conception like material, followed by a medium sharp curette to dislodge adherent tissue and the suction was passed again to remove debris. The polyp forceps then used to extract the polyp which was sent for permanent study as well. The cervical tenaculum sites were sutured with 2-0 chromic for hemostasis. The uterus was now six weeks size. The patient's legs taken out of the stirrups. All counts were correct and she was awakened and taken to the recovery room in good condition. MD SUZANNA Hamilton/GIOVANNA /2:50 PM /10:57 AM PRIYANKA
[2016-08-05 00:14] VITALS: BP 86/50; PULSE 67; RESP 16; TEMP 98.3; O2SAT 100
[2016-08-05] MEDS: METHYLERGONOVINE MALEATE 0.2 MG TAB PO SCH ×2 (00:15→05:22)
[2016-08-05 04:14] VITALS: BP 86/50; PULSE 67; RESP 16; TEMP 98.1; O2SAT 100
[2016-08-05] MEDS: KETOROLAC TROMETHAMINE 30 MG/ML (IVP) VIAL IVP SCH ×2 (04:17→10:15)
[2016-08-05] MEDS: oxyCODONE/ACETAMINOPHEN 5 MG/325 MG TAB PO PRN (04:17)
[2016-08-05] MEDS: DOCUSATE SODIUM 100 MG CAP PO SCH (05:22)
[2016-08-05] MEDS: METOCLOPRAMIDE HCL 10 MG/2 ML VIAL IV PUSH SCH (05:30)
[2016-08-05] MEDS: D5-1/2 NS + KCL 20 MEQ INJ 1,000 ML IV SCH (05:30)
[2016-08-05 05:55] LABS: AUTOMATED NEUTROPHIL # 2.7 TH/MM3 (1.8-7.7); BASOPHIL % 0.6 % (0.0-2.0); EOSINOPHIL # 0.2 TH/MM3 (0-0.4); EOSINOPHIL % 2.9 % (0.0-4.0); HEMATOCRIT 27.1 % (35.0-46.0); HEMO FLAGS DIFF FINAL; LYMPH % 48.9 % (9.0-44.0); LYMPHOCYTE # 3.1 TH/MM3 (1.0-4.8); MEAN CELL VOLUME 87.7 FL (80.0-100.0); MEAN CORPUSCULAR HEMOGLOBIN 28.5 PG (27.0-34.0); MEAN CORPUSCULAR HGB CONC 32.5 % (32.0-36.0); MONO % 4.7 % (0.0-8.0); NEUT % 42.9 % (16.0-70.0); PLATELET COUNT 151 TH/MM3 (150-450); RED BLOOD COUNT 3.08 MIL/MM3 (4.00-5.30); RED CELL DISTRIBUTION WIDTH 13.3 % (11.6-17.2); WHITE BLOOD COUNT 6.4 TH/MM3 (4.0-11.0)
[2016-08-05 06:31] LABS: POTASSIUM 3.8 MEQ/L (3.5-5.1)
[2016-08-05 07:02] VITALS: BP 82/50; PULSE 68; RESP 18; TEMP 98
--- NOTE | 2016-08-05 07:42 | HHI.FPPN ---
Subjective Remarks No acute issues overnight. Vitals are stable, patient remains afebrile. She is having light spotting. She was having occasional cramping overnight but is currently comfortable. She has been ambulating, voiding and stooling without difficulty. She had some nausea this morning which was relieved with Zofran. She denies any chest pain, shortness of breath, or abdominal pain. She notes that her legs are achy but feel better when she moves around. Objective Vitals Vital Signs Date Time Temp Pulse Resp B/P Pulse Ox O2 Delivery O2 Flow Rate FiO2 08/05/16 07:02 98.0 68 18 82/50 08/05/16 04:14 98.1 67 16 86/50 100 08/05/16 00:14 98.3 67 16 86/50 100 08/04/16 20:19 98.3 78 17 88/47 100 08/04/16 15:57 97.8 80 16 97/55 100 08/04/16 15:15 80 14 96/50 100 Room Air 08/04/16 15:00 95 14 95/52 95 Room Air 08/04/16 14:57 98.5 106 13 94/55 100 Room Air 08/04/16 12:12 97.8 70 16 87/52 100 08/04/16 08:18 98.3 80 16 100/58 99 I/O 08/04/16 08/04/16 08/04/16 08/05/16 08/05/16 08/05/16 07:00 15:00 23:00 07:00 15:00 23:00 Intake Total 1893 ml Output Total 50 ml Balance 1843 ml Intake IV Total 1393 ml Other 500 ml Output Estimated Blood Loss 50 ml # Voids 4 Result Diagram: 08/05/16 0533 08/05/16 0533 Imaging Last Impressions Pelvis Ultrasound 08/03/16 0000 Signed Impressions: Service Date/Time: Wednesday, August 03, 2016 19:00 - CONCLUSION: 1. There is a hypervascular mass in the central uterus measuring 4.6 cm. Is uncertain whether this arises from myometrium or endometrium. 2. Complex partially cystic lesion in the left ovary measuring 2.4 cm with peripheral flow on color Doppler. 3. Passage of a significant amount of clot from the vagina during the transabdominal exam. Hiram Cat MD Objective Remarks GEN: Well-developed, well-nourished female patient. No acute distress. Resting comfortably in bed CV: Regular rate and rhythm without murmurs. Strong and symmetric pedal pulses. LUNGS: Clear to auscultation bilaterally. Normal respiratory effort. GI: Soft, nontender, nondistended. No masses or organomegaly. EXT: No edema. No calf tenderness. NEURO/PSYCH: Awake, alert. Appropriate insight and judgment. Normal speech A/P Assessment and Plan 31 yo who had a recent EAB at 7 weeks gestation in [place]. Was given an unknown medication and had a follow-up ultrasound 2 weeks later that was reported as mostly normal per patient. Admitted for significant vaginal bleeding after elective . 1. Post AB hemorrhage * Responded to IM Methergine x2. Continue oral Methergine q6hr. * US significant for 4.6cm hypervascular mass in the uterus. BHCG trending down from 24 to 8 today. * s/p suction and sharp D&C by Dr. Bee on 08/04. * H&H trending down from 9.0 to 8.8 today. Patient is asymptomatic. * Anticipate discharge home today. 2. Hypotension * Suspect patient's baseline blood pressure is low and she is currently asymptomatic. dw Dr. Parra Problem List: (1) , failed with hemorrhage Status: Resolved Ekta Perry MD R2 Aug 05, 2016 07:42
[2016-08-05] MEDS: ONDANSETRON HCL 4 MG/2 ML VIAL IV PUSH PRN (10:15)
== END 2016-08-05 12:11 | disposition home or self-care (01) ==
LOC: NEPC 16:35 → NEDA 21:32 → H1EA 23:00
PROVIDERS: ADMIT Obstetrics & Gynecology; ATTEND Obstetrics & Gynecology
DX: O03.1 Delayed or excessive hemorrhage following incomplete spontaneous abortion (principal); N84.1 Polyp of cervix uteri; I95.9 Hypotension, unspecified; J45.909 Unspecified asthma, uncomplicated; Z91.010 Allergy to peanuts
CPT/HCPCS: 59812; 76830; 76856; 80048; 81001; 84702; 84703; 85014; 85018; 85025; 85027; 86850; 86900; 86901; 86920; 87491; 87591; 88305; 94150; 96361; 96372; 96374; 96375; 96376; 99285; G0378; J0690; J1885; J2210; J2250; J2405; J2590; J3010; J3480; J7030; J7120